=== PATIENT | male | born 1990 | race Caucasian/White ===

== ENCOUNTER 2016-04-23 21:30 | Emergency (ER) | payer OTHER ==
[~2016-04-23] VITALS: Ht 193 cm; Wt 131.1 kg
[~2016-04-23 21:30] MED LIST: DOCUSATE CALCI240 MG PO; KEFLEX500 MG PO; MOTRIN600 MG PO; OXYCODONE HCL10 MG PO; PERCOCET 5/31 TABLET PO; ROXICODONE5 MG PO; SENNA8.6 M1 PO; ZANTAC150 MG PO
[2016-04-23 22:50] VITALS: BP 136/78
== END 2016-04-23 22:51 | disposition home or self-care (01) ==
LOC: EME 21:30 → RME 21:30
DX: I10 Essential (primary) hypertension (principal); F17.200 Nicotine dependence, unspecified, uncomplicated
CPT/HCPCS: 99281; 99283